=== PATIENT | female | born 1965 | race Caucasian/White ===

== ENCOUNTER 2017-07-16 06:25 | Day surgery (SDC) | payer BC ==
[2017-07-13 13:02] VITALS: BMI 24.5
[2017-07-16] MEDS ORDERED: ceFAZolin SODIUM 1 GM VIAL ONE (07:31)
[2017-07-16] MEDS ORDERED: SUCCINYLCHOLINE CHLORIDE 200 MG/10 ML VIAL ONE (07:32)
[2017-07-16] MEDS ORDERED: PROPOFOL 20 ML ONE ×2 (07:32)
[2017-07-16] MEDS ORDERED: MIDAZOLAM HCL 2 MG/2 ML SINGLE DOSE VIAL ONE (07:32)
[2017-07-16] MEDS ORDERED: KETOROLAC TROMETHAMINE 30 MG/1 ML VIAL ONE (07:34)
[2017-07-16] MEDS ORDERED: LIDOCAINE HCL/PF 2% SDV 5ML VIAL ONE (07:34)
[2017-07-16] MEDS ORDERED: LIDOCAINE HCL 2% JELLY (5 ML/TUBE) ONE (07:34)
[2017-07-16] MEDS ORDERED: ONDANSETRON 4 MG/2 ML VIAL ONE ×2 (07:34→10:12)
[2017-07-16] MEDS ORDERED: DEXAMETHASONE SOD PHOSPHATE 4 MG/1 ML VIAL ONE (07:34)
[2017-07-16] MEDS ORDERED: EPINEPHrine 1:1,000 1 MG/1 ML - 30ML VIAL (INJECTION) ONE (08:09)
[2017-07-16] MEDS ORDERED: ceFAZolin SODIUM 1 GM VIAL IVPB ONE (08:43)
[2017-07-16] MEDS ORDERED: ePHEDrine SULFATE 50 MG/1 ML AMPULE ONE (08:50)
[2017-07-16] MEDS ORDERED: methylPREDNISolone ACET (DEPO) 40 MG/1 ML VIAL ONE (09:22)
[2017-07-16] MEDS ORDERED: methylPREDNISolone ACET (DEPO) 40 MG/1 ML VIAL NR ONE (09:26)
[2017-07-16] MEDS ORDERED: BUPIVACAINE HCL/PF 0.25% (2.5MG/ML) 10 ML VIAL IJ ONE (09:31)
--- NOTE | 2017-07-16 09:49 | OP ---
Operative Note - Note: Operative Date: 07/16/17 Operation: 1. SARK. 2. PLM. 3. PMM. 4. Medial femoral condyle chondroplasty. Tourniquet: 250mmHg x 33min Findings: 1. Degenerative partial lateral meniscus tear 2. Small horizontal tear posterior horn medial meniscus 3. Large, loose medial femoral condyle chondral flap Post-Operative Diagnosis: Other Surgeon: Agustín Davis Anesthesia: General Fluid Volume Replaced (mls): 1,000 Operative Report Dictated: Yes
[2017-07-16] MEDS ORDERED: ONDANSETRON 4 MG/2 ML VIAL IVPUSH ONE (10:07)
[2017-07-16 11:21] VITALS: PULSE 62; TEMP 97.2
[2017-07-16 12:06] VITALS: BP 97/55
[2017-07-16] MEDS ORDERED: oxyCODONE HCL 5 MG TABLET PO PRN ×2 (14:54)
[2017-07-16] MEDS ORDERED: ONDANSETRON 4 MG/2 ML VIAL IVPUSH PRN (14:54)
[2017-07-16] MEDS ORDERED: LACTATED RINGERS SOLUTION 1,000 ML IV SCH (15:00)
--- NOTE | 2017-07-17 10:10 | OP ---
DATE OF OPERATION: 07/16/2017 SURGEON: Agustín Davis MD CHEMIST: None. PREOPERATIVE DIAGNOSIS: Right knee medial meniscus tear & DJD. POSTOPERATIVE DIAGNOSES: 1. Degenerative partial lateral meniscus tear. 2. Horizontal tear of posterior horn, medial meniscus. 3. Large loose medial femoral condyle chondral flap. SURGICAL PROCEDURE: 1. Surgical arthroscopy of the right knee. 2. Partial lateral meniscectomy. 3. Partial medial meniscectomy. 4. Medial femoral condyle chondroplasty. 5. Synovial debridement. ANESTHESIA: General. POSITION: Supine. INCISIONS: Standard anteromedial and anterolateral portals. ESTIMATED BLOOD LOSS: Minimal. INTRAVENOUS FLUID: Crystalloid, 1 L. SPECIMENS: None. DRAINS: None. COMPLICATIONS: None. URINE OUTPUT: None. BACTERIOLOGY: None. TRANSFUSIONS: None. TOURNIQUET PRESSURE: 250mmHg. TOURNIQUET TIME: 33 min. CLOSURE: Nylon 3-0. INDICATIONS: The patient is a 52-year-old female who was indicated for surgical arthroscopy of the right knee with debridement to facilitate improved motion and mobilization and to prevent the complications associated with a sedentary lifestyle. The patient was identified in the holding area by her arm band. A long discussion was held with the patient regarding the risks, benefits and alternatives of the above-named procedure. Risks include, but are not limited to: Pain, bleeding, infection, damage to surrounding structures (including nerves, blood vessels, skin, ligaments, tendons and bones), wound complications, need for further surgery, blood clots, myocardial infarction, pulmonary embolism, anesthesia complications, compartment syndrome, limb loss, limp, loss of function and . Benefits as mentioned above. Alternatives include no surgery. All questions were answered. The patient understood and agreed to the procedure. Informed consent was obtained, witnessed and verified. Patient's correct operative limb - that is, the right lower extremity - was marked and the patient was taken to the operating room after being seen by the anesthesia and nursing staff. PROCEDURE: The patient was brought to the operating room, placed on the OR table and secured with a safety strap. Consent and the operative site were again verified with the patient and nursing and anesthesia staff. Anesthesia was then administered without complication, including 2 g of IV Ancef. A timeout was done, led by me , the attending surgeon. The patient was positioned with bony prominences well padded and a tourniquet was placed proximally on the right thigh and set to 250 mmHg. The right thigh was then positioned in a leg jacobo. The foot of the table was then dropped. The operative site was then prepped and draped in standard sterile fashion. A timeout was again done. The limb was exsanguinated with an Esmarch, the tourniquet was inflated, and the case began. A standard anterolateral arthroscopy portal was made and the arthroscope was introduced via this incision into the suprapatellar pouch of the knee. The knee was then insufflated with normal saline solution containing epinephrine for hemostasis. The patellofemoral joint was then visualized using the arthroscope and the chondral surfaces of the patellofemoral joint were noted to be mostly intact except for a small focus of chondral defect in the trochlear sulcus. Next, the arthroscope was delivered via the medial gutter of the knee where no loose bodies were seen into the medial compartment of the knee. In mid and high flexion, there was obvious degenerative change of the medial femoral condyle with notable chondromalacia. Next, a standard anteromedial arthroscopy portal was triangulated with an 18- gauge spinal needle and then created using an 11 blade. A trocar was then introduced into the joint followed by a probe. A probe was used to demonstrate that the area of chondral damage on the medial femoral condyle was in fact associated with a large unstable medial femoral condylar flap of cartilage measuring roughly 4x4mm. This was debrided using a standard 3.5-mm shaver as the decision was made to resect this large unstable fragment out of concern that it was largely contributing to her knee symptomatology. A small horizontal tear of the posterior horn of the medial meniscus was also identified and this was debrided using an upgoing biter. The knee was too tight to deliver the 3.5-mm shaver into the area of the medial meniscus tear, but satisfactory debridement was achieved using the biter. Next, the arthroscope was delivered into the middle of the knee where the ACL was determined to be intact and in place and was demonstrated to be stable using the probe. There was some excessive fibrous tissue adjacent to the lateral aspect of the ACL that was loose and flapping around within the knee. This was debrided using the 3.5-mm shaver. Next, the arthroscope was delivered into the lateral compartment of the knee where a degenerative, short radial tears were seen in the posterior body of the lateral meniscus. This was again debrided using a 3.5-mm shaver. The knee was too tight to deliver the arthroscope into the lateral gutter, so again the arthroscope was delivered into the middle of the knee where the knee was copiously irrigated using the normal saline solution containing epinephrine. Pictures were taken during all of the aforementioned steps. The inflow suction was then clamped and the knee was aspirated of all irrigating and lavaging fluid. Next, the arthroscope was removed from the knee and a 4-mL injection consisting of 1 mL of Depo-Medrol 40 mg/mL and 3 mL of 0.25% Marcaine were injected into the lateral compartment of the knee. Hemostasis was then confirmed and the wounds were closed primarily using 3-0 nylon suture in figure-of-8 fashion. A sterile compressive dressing was applied and the tourniquet was let down at a final time of 33 minutes. The sponge and needle counts were correct at the end of the case and I, the attending surgeon, was present and scrubbed throughout the entire case. The patient was then extubated by the anesthesia staff without incident or complications and was transferred to the recovery room in stable condition, having tolerated the procedure well. MD ARASELI Lieberman/[id number] MTDD
--- NOTE | 2017-07-21 15:42 | PATH ---
Surgical Pathology Report Patient Name: VICTORIANO CORTEZ Med. Rec. #: [id number] /Age/Gender: 1965 (Age: 52) / F Account: [id number] Location: [facility] Taken: 07/16/2017 Received: 07/16/2017 Reported: 07/21/2017 Physicians: Agustín Davis M.D. Specimen(s) Received RIGHT KNEE SHAVINGS Clinical History Knee pain, right medial meniscus tear Final Diagnosis KNEE, RIGHT, ARTHROSCOPIC SHAVINGS: FIBROSYNOVIAL TISSUE AND CARTILAGE. Electronically Signed Lillie Lozano M.D. Gross Description Received in formalin, labeled "right knee shavings," is a 2.4 x 1.3 x 0.2 cm. aggregate of moe-yellow soft tissue fragments. The formalin is filtered and the specimen is entirely submitted in one cassette. /07/20/201707/20/2017
== END 2017-07-16 12:01 | disposition home or self-care (01) ==
LOC: FASU 06:25
PROVIDERS: ATTEND Orthopaedic Surgery Adult Reconstructive Orthopaedic Surgery
PROC: 0SBC4ZZ Excision of Right Knee Joint, Percutaneous Endoscopic Approach (ICD-10-PCS; 2017-07-16)
PROC: 0SBC4ZZ Excision of Right Knee Joint, Percutaneous Endoscopic Approach (ICD-10-PCS; 2017-07-16)
PROC: 0SBC4ZZ Excision of Right Knee Joint, Percutaneous Endoscopic Approach (ICD-10-PCS; principal; 2017-07-16 08:00)
DX: M23.261 Derangement of other lateral meniscus due to old tear or injury, right knee (principal); M23.221 Derangement of posterior horn of medial meniscus due to old tear or injury, right knee; M24.10 Other articular cartilage disorders, unspecified site
CPT/HCPCS: 88304-TC; 94760